=== PATIENT | male | born 1940 | race Caucasian/White ===

== ENCOUNTER → 2016-11-19 | Outpatient (CLI) | payer MEDICARE ==
--- NOTE | ~2016-11-19 | CT17 ---
[facility] A Service of [facility] RADIOLOGY TEXT RESULTS PATIENT: JAX BRAN LOCATION: [facility] : 44 UNIT #: [id number] AGE: [address]: MAILE VO MD SEX: M ORDER DR: [id number] [facility] [address] [place], [place] [address] [id number] O MR#: [id number] [facility] #: [id number] NAME: JAX BRAN : 1940 SEX: M STUDY DATE/TIME: 11/19/2016 12:09 UNIT: [facility] ROOM: STUDY DESCRIPTION: CT Angio Head Attending Physician: Maile Vo M.D. Referring Physician: Maile Vo M.D. Ordering Physician: Maile Vo M.D. Primary Care Physician: Demarcus Vieira D.O. MEDICAL IMAGING REPORT This report is preliminary unless electronic signature is present EXAM CT angiogram head. HISTORY Cerebral arterial aneurysm. 76-year-old male patient with a history of vertigo, atrial fibrillation and aneurysm. Vertigo for 17 years. History of aneurysm in head since May 2016. COMMENT CT angiography of the intracranial vessels performed during the intravenous administration of 100 mL of Isovue-370. Imaging acquired in the axial plane followed by multiple reconstructed and reformatted images for purpose of 3-D CT angiography of the intracranial vasculature. This CT exam was performed with one or more of the following radiation dose reduction techniques: automatic exposure control, adjustment of mA and/or kV according to patient size, and iterative reconstruction. There is a comparison MR angiogram from 05/16/2016. On the prior study. The aneurysm is seen in the left side supraclinoid ICA. The CT angiogram is relatively more limited than MR angiogram for evaluation of this region. Partly redemonstrated is the known aneurysm. It likely has a broad neck and measures about 3 mm in diameter directed inferiorly from the left supraclinoid ICA. Again, I suspect it is bilobed, but is better seen previously. When it is followed, I would recommend that it be followed with MR angiogram because of this location. There is an anterior communicating artery present. There is no intracranial vascular cutoff. The distal right vertebral artery is dominant and both supply the basilar. There is some fullness at the tip of the basilar with what is either a junctional complex or small aneurysm at the origin of the left P1 vessel and superior cerebellar artery. This fullness is about 2-3 mm in dimension and probably not significantly changed from previous. It should be followed also. Left A1 vessel is mildly hypoplastic when compared to the right side A1 vessel. There are [facility]. [facility] A Service of [facility] RADIOLOGY TEXT RESULTS PATIENT: JAX BRAN LOCATION: [facility] : 44 UNIT #: [id number] AGE: [address]: MAILE VO MD SEX: M ORDER DR: posterior communicators bilaterally. Dural venous sinuses are grossly patent. Mild vascular calcification at the carotid siphons. No focal central stenosis is suspected. Patient has had cataract surgery bilaterally. IMPRESSION 1. Redemonstration of patient's known aneurysm, supraclinoid left ICA, about 3 x 3 mm dimension. Probably bilobed with a broad neck. It is probably not significantly changed from the MR angiogram of 05/16/2016. Continued follow up is recommended preferably with the MR angiogram and given the location of this aneurysm at the skull base. 2. Again, there is fullness at the tip of the basilar at the origin of the left side P1 vessel and superior cerebellar artery. This could be an infundibulum type structure or small aneurysm, 2-3 mm in dimension, also stable, but attention to this area is also recommended on followup imaging. STAT * RESULT Dictated by... She Suarez M.D. THIS IS AN ELECTRONICALLY VERIFIED REPORT She Suarez M.D. at 11/20/2016 12:34 PM VICTORIANO/rich TD: 11/20/2016 10:26 JOB #: [id number] MEDICAL IMAGING REPORT Page 1 of 1 COPY
[2016-11-19 13:11] LABS: POC - CREATININE 0.89 mg/dL (0.64-1.27); POC - GFR >60.0 mL/min (>60)
== END | disposition home or self-care (01) ==
LOC: CCAT 10:22
PROVIDERS: Psychiatry & Neurology Clinical Neurophysiology
DX: I67.1 Cerebral aneurysm, nonruptured (principal)
CPT/HCPCS: 70496; 82565; Q9967